=== PATIENT | female | born 1990 | race Caucasian/White ===

== ENCOUNTER 2017-10-20 14:18 | Emergency (ER) | payer OTHER ==
--- NOTE | 2017-10-20 15:27 | OBHP ---
Datetime: 10/20/2017 15:01 IP Adm Impression: , intrauterine IP Admit Plan: Observation/Evaluation Admit Comment, IP Provider: 37 y/o female at 30.6wks (PAMELA 12/[birth year]) presents to [facility] with complaint s of intermittent CTX yesterday. Denies having any today. Denies VB or LOF. + FM PNC: Patient of Dr. Hayes. PMHx: Denies PSurg Hx: Denies Medications: PNV KNDA Social: Denies habits x3 VSS PE unremarkable Asssement: IUP at 30.6 wks presenting with CTX Plan: OB us with Cervical Length Measurement. Continuous monitoring. The patient was seen with the resident and I agree with its cervix long closed posterior plan of c are discussed PMDD requesting cervical length. Patient discharged post sonogram Pelvic Type - PN: Adequate Extremities - PN: Normal Abdomen - PN: Normal Back - PN: Normal Breast - PN: Normal Lungs - PN: Normal Heart - PN: Normal Thyroid - PN: Normal Neurologic - PN: Normal HEENT - PN: Normal General - PN: Normal FHR - Baseline A Provider: 145 EGA AdmitDate IP: 30.5 Vital Signs Provider: Reviewed; Within Normal Limits IP Chief Complaint: Uterine contractions NICHD Variability Prov Fetus A: Moderate 6-25bpm NICHD Accel Fetus A IP Provider: 10X10 FHR Category Provider Fetus A: Category I NICHD Decel Fetus A IP Provider: None Dilatation, Provider: 0 Effacement, Provider: 0 Station, Provider: 0 Genitourinary Exam: Normal DTRs - PN: Normal
--- NOTE | 2017-10-20 17:23 | US ---
Limited Ob ultrasound for cervical length measurement only Indication: Cervical length measurement only requested, patient 31 weeks, abdominal pain Comparison: None available Findings: Limited submitted views demonstrate cervix length approximately 4.9 cm. The cervix appears closed. Heterogeneous fluid collection within the cervical canal measures approximately 3.3 x 1.3 cm. Impression: Limited submitted views demonstrate cervix length approximately 4.9 cm. The cervix appears closed. Heterogeneous fluid collection within the cervical canal measures approximately 3.3 x 1.3 cm. Correlate clinically for blood products or vaginal bleeding. Recommend further evaluation with OB ultrasound if indicated as no priors available at this institution.
[2017-10-20 23:21] VITALS: BP 95/79; PULSE 97; RESP 16; TEMP 97.5; O2SAT 100
== END 2017-10-20 18:30 | disposition home or self-care (01) ==
LOC: H.EROB2 14:18
DX: O47.03 False labor before 37 completed weeks of gestation, third trimester (principal); Z3A.30 30 weeks gestation of pregnancy

== ENCOUNTER 2017-11-26 23:55 | Emergency (ER) | payer OTHER ==
[2017-11-27 05:38] VITALS: BP 136/77; PULSE 98; RESP 16; TEMP 97.8; O2SAT 100
== END 2017-11-27 01:05 | disposition home or self-care (01) ==
LOC: H.EROB2 23:55
DX: O26.93 Pregnancy related conditions, unspecified, third trimester (principal); R10.2 Pelvic and perineal pain; Z3A.36 36 weeks gestation of pregnancy; O47.03 False labor before 37 completed weeks of gestation, third trimester

== ENCOUNTER 2017-12-04 22:05 | Emergency (ER) | payer OTHER ==
[2017-12-04 23:07] VITALS: BMI 31.5
[2017-12-05 04:12] VITALS: BP 136/79; PULSE 100; RESP 18; TEMP 98.1; O2SAT 100
--- NOTE | 2017-12-06 14:19 | OBHP ---
Datetime: 12/04/2017 23:08 IP Adm Impression: Term, intrauterine ; No Active Labor IP Chief Complaint Other: Passage of mucous plug IP Admit Plan: Observation/Evaluation; Discharge home Admit Comment, IP Provider: 27yo with IUP at 37wks presents here today c/o pelvic pressure and passage of mucous plug. She denies VB or LOF but reports seeing some fluid a couple of days ago. [place]: None, FHR: Category 1, Cx: Ft /30/-3, Vtx, Speculum exam: No gross pooling, Nitrazine is neg ative. Assessment: IUP at 37wks NST- Reactive No Active labor. Plan after discussion with Dr Trejo on Phone: D/C home. F/U with Clinic on Labor Precautions given. Pelvic Type - PN: Adequate Extremities - PN: Normal Abdomen - PN: Normal Back - PN: Normal Breast - PN: Normal Lungs - PN: Normal Heart - PN: Normal Thyroid - PN: Normal Neurologic - PN: Normal HEENT - PN: Normal General - PN: Normal Presentation-Admit: Vertex FHR - Baseline A Provider: 140 Membranes, Provider: Intact Contraction Comments Provider: None Gestation - Est Wks by US: 37.0 EGA AdmitDate IP: 37.0 IP Chief Complaint: Maternal discomfort; Other NICHD Variability Prov Fetus A: Moderate 6-25bpm NICHD Accel Fetus A IP Provider: 15X15 FHR Category Provider Fetus A: Category I NICHD Decel Fetus A IP Provider: None Dilatation, Provider: FT Effacement, Provider: 30 Station, Provider: -3 Genitourinary Exam: Normal DTRs - PN: Normal Datetime: 11/27/2017 00:43 Comments, ACOG Physical Exam: Bedside US: cephalic presentation SVE: FT/LONG/HIGH IP Hx Assessment: The History has been Reviewed and is Current
== END 2017-12-04 23:15 | disposition home or self-care (01) ==
LOC: H.EROB2 22:05
DX: O47.1 False labor at or after 37 completed weeks of gestation (principal); Z3A.37 37 weeks gestation of pregnancy; O26.93 Pregnancy related conditions, unspecified, third trimester; R10.2 Pelvic and perineal pain

== ENCOUNTER 2017-12-11 00:43 | Emergency (ER) | payer OTHER ==
[2017-12-11 01:25] VITALS: BMI 31.8
--- NOTE | 2017-12-11 12:37 | US ---
PROCEDURE: OB Pelvic Ultrasound HISTORY: estimated weight COMPARISON: Pelvic ultrasound dated 10/20/2017. FINDINGS: UTERUS: Placenta: Anterior. Presentation: Cephalic. BPD: 9.4 cm compatible with estimated gestational age of 38 weeks, 2 days. HC: 33.3 cm compatible with estimated gestational age of 38 weeks, 0 days. HC: 34.2 cm compatible with estimated gestational age of 38 weeks, 0 days. FL: 7.4 cm compatible with estimated gestational age of 38 weeks, 0 days. Heart rate: 149 bpm. age (Ultrasound estimated): 38 weeks, 1 day Estimated weight: 3380 grams (7 pounds, 7 ounces) NADIA: 10.9 cm Carlyn-gestational hemorrhage: None. Date of delivery (Ultrasound estimated) : 12/24/2017 CERVIX: Measures 3.1 cm. Long and closed. No cervical abnormality seen. RIGHT OVARY: Not visualized LEFT OVARY: Not visualized FREE FLUID: None. OTHER FINDINGS: None. IMPRESSION: Single intrauterine gestation with average ultrasound age of 38 weeks, 1 day. heart rate 149 beats per minute. Estimated weight 3380 grams (7 pounds, 7 ounces). NADIA 10.9 cm.
[2017-12-12 12:27] VITALS: BP 102/52; PULSE 101; RESP 18; TEMP 97.7
== END 2017-12-11 13:25 | disposition home or self-care (01) ==
LOC: H.EROB2 00:43
DX: O47.1 False labor at or after 37 completed weeks of gestation (principal); Z3A.38 38 weeks gestation of pregnancy; O26.93 Pregnancy related conditions, unspecified, third trimester; R10.2 Pelvic and perineal pain

== ENCOUNTER 2017-12-21 11:37 | Inpatient (IN) | payer OTHER ==
[2017-12-21 12:45] VITALS: BMI 32.2
[2017-12-21] MEDS: Lactated Ringer's 1,000 ML IV SCH ×4 (13:30→17:14)
[2017-12-21 13:48] VITALS: O2SAT 99
--- NOTE | 2017-12-21 14:09 | OBADHP ---
Datetime: 12/21/2017 14:02 Admit Comment, IP Provider: 27yo G [id number] IUp at 39w c/o CTX since 7am. No SROM; +FM; no VB PNC: CP Dr Ross POBGYNH: x 1 [facility] - 6+lb - LGSIL on PAP PMH: denies PSH: denies NKA PFH: mother - DM/HTN A: IUP at 39w early labor PLAN admti to L_D Pelvic Type - PN: Adequate Extremities - PN: Normal Abdomen - PN: Normal Back - PN: Normal Breast - PN: Not Done Lungs - PN: Normal Heart - PN: Normal Thyroid - PN: Normal Neurologic - PN: Normal HEENT - PN: Normal General - PN: Normal Presentation-Admit: Vertex FHR - Baseline A Provider: 120 Membranes, Provider: Intact Contraction Comments Provider: + Pool Provider: Negative IP Hx Assessment: The History has been Reviewed and is Current Vital Signs Provider: Reviewed; Within Normal Limits IP Chief Complaint: Uterine contractions NICHD Variability Prov Fetus A: Moderate 6-25bpm NICHD Accel Fetus A IP Provider: 15X15 FHR Category Provider Fetus A: Category I NICHD Decel Fetus A IP Provider: None Dilatation, Provider: 4 Genitourinary Exam: Normal DTRs - PN: Normal EGA AdmitDate IP: 39.3 IP Adm Impression: Term, intrauterine ; Intact Membranes IP Admit Plan: Admit to unit; Initiate labor protocol Datetime: 12/11/2017 02:13 Effacement, Provider: thick Station, Provider: -3 Datetime: 12/04/2017 23:08 IP Chief Complaint Other: Passage of mucous plug Gestation - Est Wks by US: 37.0 Datetime: 11/27/2017 00:43 Comments, ACOG Physical Exam: Bedside US: cephalic presentation SVE: FT/LONG/HIGH
[2017-12-21 14:22] LABS: HEMOGLOBIN 12.4 g/dL (12.0-16.0); MEAN CELL VOLUME 90.3 fl (81.0-99.0); MEAN CORPUSCULAR HEMOGLOBIN 29.8 pg (27.0-31.0); RBC 4.16 Mil/uL (3.80-5.20); RED CELL DISTRIBUTION WIDTH 14.1 % (11.5-14.5); WHITE BLOOD COUNT 13.5 K/uL (4.8-10.8)
[2017-12-21] MEDS ORDERED: Bupivacaine HCl 0.25% PF (10 ml) Inj ONE ×2 (14:25→14:53)
[2017-12-21] MEDS ORDERED: Lidocaine 2% Inj (20ml) ONE (14:58)
[2017-12-21] MEDS ORDERED: Oxytocin 30 units/LR 500ML 30 UNITS/500 ML BAG IV ONE (14:58)
[2017-12-21] MEDS ORDERED: Oxytocin 30 units/LR 500ML 30 U/500 ML BAG IV ONE (16:05)
--- NOTE | 2017-12-21 16:22 | OBDS ---
MATERNAL INFORMATION Estimated Blood Loss (ml): 250 ml Maternal Complications: None Provider Comments: delivery of live baby girl 9/9 clear fluid cord with 3 vessels placenta int act perineum intact LABOR SUMMARY EDC: 12/25/2017 00:00 No. Babies in Womb: 1 LABOR INFORMATION Reason for Induction: Not Applicable Onset of Labor: 12/21/2017 05:00 Group B Beta Strep: Negative Steroids Given: None Reason Steroids Not Administered: Not Applicable VAGINAL DELIVERY Laceration Type: None Laceration Repair Note: none Sponge Count Correct: Yes Sharps Count Correct: Yes Count Comment: correct
[2017-12-21] MEDS ORDERED: Oxycodone/Acetaminophen 5/325 mg Tab PO PRN ×4 (17:12→20:07)
[2017-12-21] MEDS ORDERED: Lansinoh for Breast Feeding Mothers TP ONE (20:13)
[2017-12-22 08:24] LABS: BASO % 0.3 % (0.0-2.0); EOS # 0.1 K/uL (0.0-0.7); EOS % 0.9 % (0.0-4.0); HEMOGLOBIN 10.9 g/dL (12.0-16.0); LYMPH # 2.4 K/uL (1.0-4.3); LYMPH % 18.6 % (20.0-40.0); MEAN CELL VOLUME 88.6 fl (81.0-99.0); MEAN CORPUSCULAR HEMOGLOBIN 30.4 pg (27.0-31.0); MEAN CORPUSCULAR HGB CONC 34.3 g/dL (33.0-37.0); MONO % 7.4 % (0.0-10.0); NEUT # 9.5 K/uL (1.8-7.0); NEUT % 72.8 % (50.0-75.0); RBC 3.59 Mil/uL (3.80-5.20); WHITE BLOOD COUNT 13.1 K/uL (4.8-10.8)
--- NOTE | 2017-12-23 08:55 | OBDCSUM ---
Datetime: 12/23/2017 08:52 Discharged to, Provider: Home Follow up at, Provider: Disch Instr Activity: Bedrest; May be up to bathroom; May be up for meals; May Shower Disch Instr Diet: Regular Discharge Instructions, Provider: Routine instructions given Discharge Diagnosis, Provider: Term Delivered Follow up in weeks, Provider: 5-6weeks Disch Referrals: None Disch Activity Restrictions: No exercising; No lifting; No driving; Minimize walking; Minimize stair -climbing; No sexual activity; Nothing in vagina - [place], tampons, douche Discharge Comment, Provider: dc home today rto 5-6 weeks call office if any problems Contraception after Delivery: Undecided
--- NOTE | 2017-12-23 08:55 | OBPPN ---
Datetime: 12/23/2017 08:50 PP Pain Prov: Within normal limits PP Nausea Prov: Denies PP Flatus Prov: Yes PP BM Prov: Yes PP Breasts Prov: Normal PP Heart Prov: Normal PP Lungs Prov: Normal PP Abdomen/Uterus Prov: Normal PP Lochia Prov: Normal PP Vulva/Perineum Prov: Normal PP CVA Tenderness Prov: Normal PP Extremities Prov: Normal PP Progress Prov: Normal PP Impression Prov: Normal progression PP Plan Prov: Continue present management PP Progress Note Prov: stable ppd2 no complaints continue present care IP PP Procedures: None Vital Signs Provider PP: Reviewed; Within Normal Limits
[2017-12-23 19:17] VITALS: BP 118/69; PULSE 77; RESP 20; TEMP 98.1
== END 2017-12-23 13:40 | disposition home or self-care (01) | DRG 775 ==
LOC: H.EROB2 11:37 → H.EROB 11:50 → H.EROB2 12:44 → H.EROB 12:45 → H.L&D 13:42 → H.OB/GYN 20:00
PROVIDERS: ADMIT Specialist; ATTEND Specialist
PROC: 10E0XZZ Delivery of Products of Conception, External Approach (ICD-10-PCS; principal; 2017-12-21)
PROC: 4A1HXCZ Monitoring of Products of Conception, Cardiac Rate, External Approach (ICD-10-PCS; 2017-12-21)
DX: O80 Encounter for full-term uncomplicated delivery (principal); Z37.0 Single live birth; Z3A.39 39 weeks gestation of pregnancy